=== PATIENT | male | born 1955 | race Caucasian/White ===

== ENCOUNTER 2016-11-17 07:06 | Day surgery (SDC) | payer MEDICARE, OTHER ==
[~2016-11-17 07:06] MED LIST: CHONDR SULF 4%/HYALURONATE 3% 0.5 ML SYRINGE IO ONE; EPINEPHRINE 0.5 MG in BALANCED SALT IRRIG SOLN NO.2 500 ML IO ONE; NEO/POLYMYX B SULF/DEXAMETH OP OINT 14 APPLIC/3.5 G TUBE OS ONE; PHENYLEPHRINE HCL 10% 100 GTTS/5 ML BOT SOLN.DROP OS PRN; PROPARACAINE HCL 0.5% 300 GTTS/BOT SOLN.DROP OS ONE; SODIUM CHLORIDE 0.9% 500 ML IV SCH
[2016-11-17] MEDS ORDERED: IV START KIT ONE (07:28)
[2016-11-17] MEDS ORDERED: SODIUM CHLORIDE 0.9% 500 ML ONE ×2 (07:28→08:32)
[2016-11-17] MEDS: PHENYLEPHRINE 2.5% OPHTH 40 GTTS/2 ML BOT SOLN.DROP OS SCH ×2 (07:52→07:59)
[2016-11-17] MEDS: FLURBIPROFEN SODIUM 0.03% 50 GTTS/2.5 ML BOT SOLN.DROP OS SCH ×2 (07:53→07:59)
[2016-11-17] MEDS: CYCLOPENTOLATE HCL 1% 40 GTTS/2 ML BOT SOLN.DROP OS SCH ×2 (07:53→07:59)
[2016-11-17] MEDS ORDERED: MIDAZOLAM HCL 1 MG/ML 2ML VIAL ONE ×2 (08:08→08:35)
--- NOTE | 2016-11-18 09:48 | OP ---
Devante Dumas [id number] DATE OF PROCEDURE: 11/17/2016 PREOPERATIVE DIAGNOSIS: Cataract OS. POSTOPERATIVE DIAGNOSIS: Pseudophakia OS. PROCEDURE: PHACOEMULSIFICATION AND POSTERIOR CHAMBER INTRAOCULAR LENS OS. ANESTHESIA: Monitored anesthesia care (MAC) with topical. SURGEON: Gerry Johnson M.D. COMPLICATIONS: None. DESCRIPTION OF PROCEDURE: After informed consent was obtained the patient was brought back to the operating room and laid in the supine position. Cardiac monitors and intravenous access were obtained by nursing and the patient underwent IV sedation without complication. Once adequate intubation was in place the patient was prepped and draped in the usual sterile fashion. A lid speculum was placed in the left eye. Attention was directed to the limbus at 6 o'clock where a side port was created using a 15 degree blade. Upon entering the anterior chamber non-preserved lidocaine was placed anterior chamber followed by reinflating the anterior chamber with Viscoelastic. A clear corneal incision was then created on the limbus at the three o'clock using a grooved blade followed by a 2.4 mm keratome blade. Upon entering the anterior chamber a curvilinear capsulorrhexis was initiated and completed with the Utrata forceps. Balanced salt solution (BSS) was used to hydrodissect the cataract and the cataract was removed with a phacoemulsification unit in a phaco-chop technique. The remaining cortical remnants were removed with the irrigation and aspiration unit. Viscoelastic was then used to reinflate the capsular bag and anterior chamber and the intraocular lens SN60WF, 14.0 diopter lens was removed from packaging and found to be without defect. This was placed into the injector and injected into the capsular bag without difficulty. The posterior haptic was rotated into position using a Kuglen hook. The lens was noted to be well centered in the bag. The remaining viscoelastic was then removed with the irrigation and aspiration unit. Balanced salt solution (BSS) was used to reinflate the anterior chamber. The wounds were inspected and found to be watertight. Maxitrol ointment placed in the eye. The patient left the operating room in good condition and there were no complications. JOB: [id number]
== END 2016-11-17 09:35 | disposition home or self-care (01) ==
LOC: SDC 07:06
PROVIDERS: ATTEND Ophthalmology
PROC: 08RK3JZ Replacement of Left Lens with Synthetic Substitute, Percutaneous Approach (ICD-10-PCS; principal; 2016-11-17)
DX: H25.9 Unspecified age-related cataract (principal); I48.91 Unspecified atrial fibrillation; Z88.0 Allergy status to penicillin; Z88.1 Allergy status to other antibiotic agents; Z88.7 Allergy status to serum and vaccine; Z79.82 Long term (current) use of aspirin
CPT/HCPCS: 66984; J2250 ×2; J7040 ×2; J0171; V2630